=== PATIENT | female | born 1975 | race Caucasian/White ===

== ENCOUNTER 2024-09-25 09:15 | Inpatient (IN) | payer OTHER ==
[~2024-09-25] VITALS: Ht 121.9 cm; Wt 66.2 kg
[~2024-09-25 09:15] MED LIST: MULTIPLE VITAM1 EAC2 PO; PRILOSEC OTC20 MG PO
[2024-09-25 09:17] VITALS: BP 130/83
[2024-09-25 12:30] LABS: RH POSITIVE
[2024-10-01] MEDS ORDERED: POVIDONE-IODINE 118 ML BOTT TOP ONE (11:13)
[2024-10-01] MEDS ORDERED: METRONIDAZOLE/SODIUM CHLORIDE 500 MG/100 ML PIGGYBACK IV ONE (11:13)
[2024-10-01] MEDS ORDERED: SUGAMMADEX SODIUM 200 MG/2 ML VIAL IV ONE (12:28)
[2024-10-01] MEDS ORDERED: HEMOSTATIC MATRIX 1 KIT KIT TOP ONE (12:48)
[2024-10-01] MEDS ORDERED: MORPHINE SULFATE 4 MG/ML VIAL IV ONE (14:05)
[2024-10-01] MEDS ORDERED: DOCUSATE SODIUM 100MG CAP PO SCH (17:33)
[2024-10-01] MEDS ORDERED: MORPHINE SULFATE 4 MG/ML CARTRIDGE IV PRN (17:45)
[2024-10-01 18:40] VITALS: BP 130/83
[2024-10-01] MEDS ORDERED: ENOXAPARIN SODIUM 40 MG/0.4 ML SYRINGE SUBCUTANEO SCH (21:00)
[2024-10-02] VITALS: BP 125/75
[2024-10-02 04:30] VITALS: BP 125/57
[2024-10-02 08:36] VITALS: BP 116/69
[2024-10-02] MEDS ORDERED: ACETAMINOPHEN 500 MG GEL..CAP PO PRN (09:00)
[2024-10-02] MEDS ORDERED: ACETAMINOPHEN WITH CODEINE 1 UDTAB TABLET PO PRN (09:00)
[2024-10-02 10:06] LABS: HEMATOCRIT 35.6 % (36.0-45.00); HEMOGLOBIN 12.2 g/dL (12.0-15.00); MEAN CELL VOLUME 93.5 fL (80.00-100.00); MEAN CORPUSCULAR HEMOGLOBIN 31.9 pg (27.00-32.0); MEAN CORPUSCULAR HGB CONC 34.2 g/dl (32.0-36.0); PLATELET COUNT 190 K/uL (150-450); RED BLOOD COUNT 3.81 M/uL (4.00-6.00); RED CELL DISTRIBUTION WIDTH 13.6 % (11.5-14.5)
[2024-10-02] MEDS ORDERED: FAMOTIDINE/PF 20 MG/2 ML VIAL IV PUSH SCH (17:00)
[2024-10-02 17:50] VITALS: BP 113/73
[2024-10-03 00:21] VITALS: BP 126/77
[2024-10-03 08:00] VITALS: BP 106/66
[2024-10-03] MEDS ORDERED: PEPCID20 MG PO (13:37)
[2024-10-03] MEDS ORDERED: TRAM1TAB98 PO (13:38)
== END 2024-10-03 13:58 | disposition home or self-care (01) | DRG 743 ==
LOC: OB/GYN 10-01 07:00 → O/R 10-01 07:49 → OB/GYN 10-01 09:15
PROVIDERS: ADMIT Obstetrics & Gynecology; ATTEND Obstetrics & Gynecology
PROC: 0UT70ZZ Resection of Bilateral Fallopian Tubes, Open Approach (ICD-10-PCS; 2024-10-01)
PROC: 0US90ZZ Reposition Uterus, Open Approach (ICD-10-PCS; 2024-10-01)
PROC: 0US20ZZ Reposition Bilateral Ovaries, Open Approach (ICD-10-PCS; 2024-10-01)
PROC: 0UT90ZZ Resection of Uterus, Open Approach (ICD-10-PCS; principal; 2024-10-01 07:00)
DX: D25.1 Intramural leiomyoma of uterus (principal); N92.0 Excessive and frequent menstruation with regular cycle